=== PATIENT | male | born 2000 | race African-American/Black ===

== ENCOUNTER 2021-01-28 02:17 | Emergency (ER) | payer SELFPAY ==
[~2021-01-28] VITALS: Ht 188 cm; Wt 73.0 kg
[2021-01-28] MEDS ORDERED: IBUPROFEN 600MG TABLET PO ONE (03:15)
[2021-01-28 03:33] VITALS: BP 126/76
[2021-01-28] MEDS ORDERED: TOPUD MT (04:35)
== END 2021-01-28 04:52 | disposition left against medical advice (07) ==
LOC: ER 02:17
DX: R07.89 Other chest pain (principal); M54.59 Other low back pain; R07.81 Pleurodynia; G89.11 Acute pain due to trauma; V49.49XA Driver injured in collision with other motor vehicles in traffic accident, initial encounter; Y93.89 Activity, other specified; Y92.488 Other paved roadways as the place of occurrence of the external cause
CPT/HCPCS: 99283